=== PATIENT | male | born 1965 | race Caucasian/White ===

== ENCOUNTER 2018-10-20 08:34 | Day surgery (SDC) | payer BC ==
[2018-10-20 08:48] LABS: Absolute Lymphocytes (CBC) 1.7 K/uL (0.7-4.9); Basophils % 0.6 % (0-1.3); Hematocrit 41.9 % (39.6-49.0); Lymphocytes % 28.5 % (15.3-44.8); MPV 7.7 fL (7.6-11.3); RBC Red Blood Cell Count 4.65 M/uL (4.33-5.43)
[2018-10-20] MEDS ORDERED: CEFAZOLIN/SWI 1gm 1 GM/10 ML SYR ONE (09:01)
[2018-10-20] MEDS ORDERED: Ringers Lactate 1,000 ML IV ONE (09:01)
--- NOTE | 2018-10-20 09:01 | RAD REPORT ---
EXAM DESCRIPTION: RAD - Chest Pa And Lat (2 Views) - 10/20/2018 8:33 am CLINICAL HISTORY: Preop chest, pending hernia surgery COMPARISON: None. TECHNIQUE: PA and lateral views of the chest were obtained. FINDINGS: The lungs are clear of failure, volume overload, infiltrate or mass. No acute lung parench ymal process seen. Heart size is normal and central vasculature is within normal limits. No pleura l effusion or pneumothorax seen. No acute bony finding noted. No aortic abnormality. IMPRESSION: No acute cardiopulmonary process.
--- NOTE | 2018-10-20 09:15 | EKG ---
Test Date: 2018-10-20 Test Time: 08:23:22 Sales And Merchandising Representative: MICHELLE MEASUREMENT RESULTS: Intervals: Rate: 64 DE: 152 QRSD: 88 QT: 394 QTc: 406 [place]: P: 51 DE: 152 QRS: 55 T: 53 INTERPRETIVE STATEMENTS: Normal sinus rhythm Normal ECG Compared to ECG 02/18/2012 08:52:46 No significant changes Electronically Signed On 10-20-18 09:15:03 CDT by Bo Harrison
[2018-10-20] MEDS ORDERED: FENTANYL CITR 100 MCG/2 ML ONE (10:00)
[2018-10-20] MEDS ORDERED: PROPOFOL 200 MG/20 ML VIAL IV ONE (10:01)
[2018-10-20] MEDS ORDERED: LIDOCAINE 2% MPF 5 ML VIAL ONE (10:02)
[2018-10-20] MEDS ORDERED: MIDAZOLAM HCL 2 MG/2 ML INJ ONE (10:02)
[2018-10-20] MEDS ORDERED: ONDANSETRON 4 MG/2 ML VIAL ONE (10:03)
[2018-10-20] MEDS ORDERED: ROCURONIUM 50 MG/5 ML VIAL IV ONE (10:31)
[2018-10-20] MEDS ORDERED: MEPERIDINE HCL 50 MG/ML AMP ONE (11:33)
[2018-10-20] MEDS ORDERED: HYDROCODONE/APAP 7.5/325 MG TAB ONE (12:34)
--- NOTE | 2018-10-20 22:31 | OP ---
Date of Procedure: 10/20/2018 Surgeon: Canelo Roberts MD Glucose And Syrup Weigher: AYSE Herrera Preoperative Diagnosis: Left inguinal hernia. Postoperative Diagnosis: Left inguinal hernia. Procedure: Repair of left inguinal hernia. Estimated Blood Loss: Minimal. Specimen: Cord lipoma and hernia sac. Findings: As above. Anesthesia: General. Complications: None. Disposition: Patient tolerated the procedure in stable condition, taken to Recovery in good general condition. Description Of Procedure: Patient was brought to the OR and placed in supine position. General anes thesia was began. Patient was prepped and draped in usual sterile fashion. Marcaine 0.5% was infilt rated locally in the left groin. A 15-blade was used to make a 4 mm oblique incision between the pub ic tubercle and the anterior iliac superior spine. Subcutaneous tissue divided. Marilynn fascia was i dentified and divided. Aponeurosis was identified and mobilized inferiorly and exposed the external ring. Ilioinguinal nerve was identified and retracted out of the field of dissection. Cord mobilize d and skeletonized and large cord lipoma present as well as the indirect hernia sac in the anterior m edial part of the cord. High ligation of both done with 2-0 Prolene suture ligature and free hand ti e after they were dissected free from the cord structures and then Marlex mesh plug was placed in the internal ring and secured with VersaTack stapler. Onlay mesh was placed in the inguinal floor, secu red medially to the pubic tubercle, inferiorly to the shelving edge, laterally to each other, superio r to the conjoined tendon. Then, cord structures and ilioinguinal nerve were placed back in anatomic al location. 2-0 Prolene was used to close the aponeurosis. 3-0 chromic used to close the Marilynn fa scia. Staple was used to close the skin. Sterile dressing was applied. The patient was awakened an d taken to Recovery in good general condition. Discharge Note: Patient will go to Day Surgery, then home when stable. Disposition: Home. Condition: Stable. Discharge Instructions: Resume home medications and diet. Activity as tolerated. No heavy lifting. Remove outer dressing in 2 days. Shower. Keep wound clean and dry. [facility] Call for appointment. Tylenol No. 3 one tablet p.o. q.4 p.r.n. pain. Ice pack and scrotal sup port as ordered. /EMILYL Voice ID: [id number] Report ID: [id number]
== END 2018-10-20 13:05 | disposition home or self-care (01) ==
LOC: OR 08:34
PROVIDERS: ATTEND Surgery
PROC: 0YU60JZ Supplement Left Inguinal Region with Synthetic Substitute, Open Approach (ICD-10-PCS; principal; 2018-10-20 10:00)
DX: K40.90 Unilateral inguinal hernia, without obstruction or gangrene, not specified as recurrent (principal)
CPT/HCPCS: 93005; 85025; 80048; 36415; 88302; 71046; 49505; J2704; J2250; J3010; J2175; J0690; J2405

== ENCOUNTER 2021-12-26 11:30 | Day surgery (SDC) | payer BC, OTHER ==
--- NOTE | 2021-12-23 14:58 | RAD REPORT ---
EXAM DESCRIPTION: Yazmin Giles (2 Views)12/23/2021 2:45 pm CLINICAL HISTORY: Preop for cardiac catheterization COMPARISON: 2019 FINDINGS: The lungs appear clear of acute infiltrate. The heart is normal size IMPRESSION: No acute abnormalities displayed
[2021-12-23 16:49] LABS: Protime INR 1.01
[2021-12-23 16:51] LABS: Potassium 3.9 mmol/L (3.5-5.1)
[2021-12-23 16:55] LABS: Absolute Lymphocytes (CBC) 1.9 K/uL (0.7-4.9); Hematocrit 40.2 % (39.6-49.0); Lymphocytes % 21.9 % (15.3-44.8); MCV 87.2 fL (80-100); MPV 7.9 fL (7.6-11.3); RBC Red Blood Cell Count 4.61 M/uL (4.33-5.43)
[2021-12-23 17:06] LABS: SARS-CoV-2 Antigen Rapid Res Negative (Negative)
--- NOTE | 2021-12-24 13:34 | EKG ---
Test Date: 2021-12-23 Test Time: 14:31:07 Legal Operations Manager: PAMELA MEASUREMENT RESULTS: Intervals: Rate: 68 MO: 144 QRSD: 90 QT: 390 QTc: 414 [place]: P: 66 MO: 144 QRS: 57 T: 66 INTERPRETIVE STATEMENTS: Normal sinus rhythm Normal ECG Compared to ECG 10/20/2018 08:23:22 No significant changes Electronically Signed On 12-24-21 13:33:53 CDT by Kvng Monk
[~2021-12-26 11:30] MED LIST: ASPIRIN 325 MG TAB ONE; ATROPINE SULF 1 MG/10 ML SYR IV ONE; CLOPIDOGREL 75 MG TABLET ONE; FENTANYL CITR 100 MCG/2 ML ONE; HEPA 1000U/500MLS 2,000 UNIT/1,000 ML BAG IV ONE; HEPARIN 10,000 UNIT/10 ML VIAL IV ONE; HEPARIN 5000 UNIT/ML 1 ML VIAL ONE; LIDOCAINE 1% MPF 5 ML VIAL ONE; MIDAZOLAM HCL 2 MG/2 ML INJ ONE; NA CHLORIDE 0.9% 500 ML ONE; NITROGLYCERIN 100 MCG/ML SYR (for cath lab use only) IV ONE; NITROGLYCERIN/D5W 25 MG/250 ML BTL IV ONE; TICAGRELOR 90 MG TABLET PO ONE; VERAPAMIL HCL 10 MG/4 ML VIAL IV ONE
--- NOTE | 2021-12-26 13:04 | OP ---
Date of Procedure: 12/26/2021 Surgeon: CRISTAL POWELL Procedures Performed: 1.Selective coronary angiogram. 2.Left heart catheterization. Indication: Chest pain with abnormal stress test. Access: Right radial artery 6-Somali closed with TR band. Complications: None. Bleeding: Less than 10 mL. Sedation: None. Description Of Procedure: After risks, benefits, alternatives were explained, the patient agreed to the procedure and signed informed consent. The patient was brought into the cardiac catheterization laboratory, prepped and draped in the usual sterile fashion. Then, I accessed right radial artery us ing pediatric micropuncture kit, placed a 6-Somali Slender sheath and took 5-Somali [place] 4.0 cathete r into the aortic root, engaged the left main and right coronary artery, took standard views. Cathet er was advanced over the wire into the LV. Pullback recorded small gradient indicating mild . The n, I removed the catheter and sheath, placed TR band with good hemostasis. Findings: 1.Left main; large, normal. 2.LAD is a large vessel with luminal irregularities throughout and normal diagonal branches. 3.Left circumflex; very large and dominant and normal. Mild luminal irregularities in the mid to di stal portion. 4.RCA; very small, nondominant. No disease. 5.LVEDP slightly elevated at 50 mmHg. 6.Mild aortic valve stenosis. Plan: Medical management and follow up with echocardiogram in 1 year. /ROSA ISELA Voice ID: [id number] Report ID: [id number]
[2021-12-26 15:00] VITALS: BP 116/76; TEMP 96.8; O2SAT 98
== END 2021-12-26 14:53 | disposition home or self-care (01) ==
LOC: CCL 11:30
PROVIDERS: ATTEND Internal Medicine
DX: I25.10 Atherosclerotic heart disease of native coronary artery without angina pectoris (principal); I35.0 Nonrheumatic aortic (valve) stenosis; R00.2 Palpitations; E78.5 Hyperlipidemia, unspecified; F17.220 Nicotine dependence, chewing tobacco, uncomplicated; Z20.822 Contact with and (suspected) exposure to COVID-19
CPT/HCPCS: 93005; 85025; 80048; 36415; 85610; 85730; 71046; 93458; 87811; C1893; Q9966; J2001; J1644 ×2; J7040; J2250; J3010